=== PATIENT | female | born 1980 | race Caucasian/White ===

== ENCOUNTER 2017-08-25 21:38 | Emergency (ER) | payer OTHER ==
[2017-08-25] MEDS: morphine 4 MG/ML VIAL IV (23:13)
[2017-08-25] MEDS: CLINDAMYCIN 600 MG/D5W (PMX) 50 ML IVPB (23:28)
[2017-08-25] MEDS: ONDANSETRON 4 MG INJ IV (23:28)
[2017-08-25] MEDS: SOD CHLORIDE 0.9% 1,000 ML IV (23:29)
[2017-08-25] MEDS: KETOROLAC 30 MG INJ IV (23:29)
[2017-08-26] MEDS: HYDROmorphONE 0.5 MG/0.5 ML SYG IV (00:39)
[2017-08-26] MEDS: DIPHENHYDRAMINE 50 MG INJ IV (01:46)
[2017-08-26] MEDS: LORAZEPAM 2 MG INJ IV (02:20)
[2017-08-26] MEDS: ONDANSETRON 4 MG INJ IV (02:20)
== END 2017-08-26 02:54 | disposition home or self-care (01) ==
LOC: FTE 08-26 02:54
DX: N61.1 Abscess of the breast and nipple (principal); F17.210 Nicotine dependence, cigarettes, uncomplicated
CPT/HCPCS: 81025; 96374; 96375; 96376; 99284-25